=== PATIENT | male | born 1950 | race Hispanic/Latino ===

== ENCOUNTER 2018-10-11 09:09 | Emergency (ER) | payer MEDICARE, OTHER ==
[~2018-10-11] VITALS: Ht 167.6 cm; Wt 88.0 kg
[2018-10-11] MEDS ORDERED: ORPHENADRINE CITRATE 30 MG/ML VIAL IM ONE (12:00)
[2018-10-11] MEDS ORDERED: KETOROLAC TROMETHAMINE 60 MG/2 ML VIAL IM ONE (12:00)
[2018-10-11] MEDS ORDERED: DEXAMETHASONE SOD PHOS INJ 4 MG/ML VIAL IV ONE (12:00)
[2018-10-11] MEDS ORDERED: DEXAMETHASONE SOD PHOS 10 MG/1 ML VIAL ONE (12:32)
--- NOTE | 2018-10-11 14:25 | Diagnostic Imaging Report ---
Lumbar Spine Radiographs: 5 views including obliques HISTORY: Pain, status post heavy lifting COMPARISON: None available. DISCUSSION: The osseous structures are partially obscured by stool and bowel gas. Five non-rib bearing lumbar vertebral bodies. Right convex curvature. No displaced fracture or compression deformity is identified. Disc Spaces: Mild multilevel degenerative changes, most notably at L5-S1. Facets: Moderate hypertrophic degenerative changes at L4-5 and L5-S1. IMPRESSION: 1. No acute radiographic abnormality. 2. Multilevel degenerative changes, most notably at L5-S1. Signed by: Dr. Kojo Chaudhary D.O., M.M.M. on 10/11/2018 2:21 PM
[2018-10-11 15:31] VITALS: BP 138/83
== END 2018-10-11 15:40 | disposition home or self-care (01) ==
LOC: ER 09:09
DX: S39.92XA Unspecified injury of lower back, initial encounter (principal); X50.9XXA Other and unspecified overexertion or strenuous movements or postures, initial encounter; Y93.H2 Activity, gardening and landscaping; Y92.007 Garden or yard of unspecified non-institutional (private) residence as the place of occurrence of the external cause; M47.817 Spondylosis without myelopathy or radiculopathy, lumbosacral region; M54.42 Lumbago with sciatica, left side; I10 Essential (primary) hypertension; E78.5 Hyperlipidemia, unspecified; E11.9 Type 2 diabetes mellitus without complications; Z87.891 Personal history of nicotine dependence
CPT/HCPCS: 36415; 72110; 82948; 99283; J1100; J1885; J2360

== ENCOUNTER 2018-10-26 10:06 | Emergency (ER) | payer OTHER ==
[~2018-10-26] VITALS: Ht 167.6 cm; Wt 89.4 kg
--- OUTSIDE RECORDS SUMMARY | 2018-10-26 10:09 | XMS REPORT ---
Author Author [facility] Address Unknown Phone Unavailable Care Team Providers Care Cna Ltc Name Role Phone Mario PEARSON Unavailable Unavailable Problems This patient has no known problems. Allergies, Adverse Reactions, Alerts This patient has no known allergies or adverse reactions. Medications This patient has no known medications. Results Test Description Test Time Test Comments Text Results Atomic Results Result Comments SP LUMBAR, COMPLETE MIN 4VW 2018-10-11 14:20:00 [place] [id number] Patient Name: DI ROWE MR #: [id number] : 1950 Age/Sex: 68/M Req #: [id number] Adm Physician: Ordered by: DALI SALCEDO DRUG CLERK Report #: [id number] Location: ER Room/Bed: Procedure: [id number] DX/SP LUMBAR, COMPLETE MIN 4VW Exam Date: 10/11/18 Exam Time: 1350 REPORT STATUS: Signed Lumbar Spine Radiographs: 5 views including obliques HISTORY: Pain, status post heavy lifting COMPARISON: None available. DISCUSSION: The osseous structures are partially obscured by stool and bowel gas. Five non-rib bearing lumbar vertebral bodies. Right convex curvature. No displaced fracture or compression deformity is identified. Disc Spaces: Mild multilevel degenerative changes, most notably at L5-S1. Facets: Moderate hypertrophic degenerative changes at L4-5 and L5-S1. IMPRESSION: 1. No acute radiographic abnormality. 2. Multilevel degenerative changes, most notably at L5-S1. Signed by: Dr. Ericka Chaudhary D.O., M.M.M. on 10/11/2018 2:21 PM Dictated By: ERICKA CHAUDHARY DO 142 Transcribed By: YOAV on 10/11/181420 COPY TO: DALI SALCEDO NP
[2018-10-26] MEDS ORDERED: HYDROCODONE/APAP 10MG-325MG TAB PO ONE (11:00)
--- NOTE | 2018-10-26 11:49 | Diagnostic Imaging Report ---
CT CERVICAL SPINE WO HISTORY: Fall, neck pain COMPARISON: None. TECHNIQUE: CT of the cervical spine without contrast. Sagittal and coronal reformations were created. One or more of the following dose reduction techniques were used: Automated exposure control, adjustment of the mA and/or kV according to patient size, and/or utilization of iterative reconstruction technique. FINDINGS: Cervical lordosis is straightened. There is no scoliosis or subluxation. No fractures, compression deformity, or destructive osseous lesions are seen. The craniocervical junction is intact. No gross spinal canal masses are seen. The paravertebral and paraspinal soft tissues are unremarkable. Mild to moderate lower cervical spondylosis is most prominent at C6-C7. Mild atlantoaxial arthrosis is present as well. IMPRESSION: No acute osseous abnormalities. Mild to moderate lower cervical spondylosis, most prominent at C6-C7. Signed by: Dr. Cesar Granados M.D. on 10/26/2018 11:46 AM
--- NOTE | 2018-10-26 12:01 | Diagnostic Imaging Report ---
Examination: Single AP view of the chest. COMPARISON: None. INDICATION: Right upper posterior rib pain, concern for fracture DISCUSSION: Chest: The lungs are well-inflated. No focal airspace consolidation, pleural effusion, or pneumothorax. Tortuous thoracic aorta with otherwise normal cardiomediastinal contour and pulmonary vasculature. Ribs: No acute, displaced rib fracture. IMPRESSION: No acute, displaced right rib fracture. Clear lungs. Signed by: Dr. Enrico Shen M.D. on 10/26/2018 11:58 AM
[2018-10-26 12:47] VITALS: BP 143/85
== END 2018-10-26 12:45 | disposition home or self-care (01) ==
LOC: ER 10:06
DX: M54.2 Cervicalgia (principal); S10.83XA Contusion of other specified part of neck, initial encounter; S20.211A Contusion of right front wall of thorax, initial encounter; W01.0XXA Fall on same level from slipping, tripping and stumbling without subsequent striking against object, initial encounter; Y92.008 Other place in unspecified non-institutional (private) residence as the place of occurrence of the external cause; I10 Essential (primary) hypertension; E11.9 Type 2 diabetes mellitus without complications
CPT/HCPCS: 71101; 72125; 99283

== ENCOUNTER 2022-09-24 23:12 | Emergency (ER) | payer MEDICARE, OTHER ==
[~2022-09-24] VITALS: Ht 167.6 cm; Wt 89.4 kg
[2022-09-24] MEDS ORDERED: AUGMENTIN 500-1 EACH PO (23:56)
== END 2022-09-25 00:12 | disposition home or self-care (01) ==
LOC: ER 23:17
DX: H66.92 Otitis media, unspecified, left ear (principal); I10 Essential (primary) hypertension; E11.9 Type 2 diabetes mellitus without complications; E78.5 Hyperlipidemia, unspecified
CPT/HCPCS: 99282

== ENCOUNTER 2023-02-20 08:09 | Emergency (ER) | payer MEDICARE ==
[~2023-02-20] VITALS: Ht 167.6 cm; Wt 89.4 kg
[~2023-02-20 08:09] MED LIST: AUGMENTIN 500-1 EACH PO
[2023-02-20] MEDS ORDERED: HYDROCODONE/APAP 5MG-325MG TAB PO ONE (08:30)
[2023-02-20] MEDS ORDERED: NAPROXEN250 MG PO (10:22)
== END 2023-02-20 10:34 | disposition home or self-care (01) ==
LOC: ER 08:18
DX: M25.511 Pain in right shoulder (principal); W01.0XXA Fall on same level from slipping, tripping and stumbling without subsequent striking against object, initial encounter; Y93.01 Activity, walking, marching and hiking; Y92.89 Other specified places as the place of occurrence of the external cause; I10 Essential (primary) hypertension; E11.8 Type 2 diabetes mellitus with unspecified complications; E78.5 Hyperlipidemia, unspecified
CPT/HCPCS: 99283

== ENCOUNTER 2024-11-25 23:33 | Emergency (ER) | payer MEDICARE ==
[~2024-11-25] VITALS: Ht 167.6 cm; Wt 82.6 kg
[~2024-11-25 23:33] MED LIST changes: +NAPROXEN250 MG PO
[2024-11-25 23:37] VITALS: PULSE 83; RESP 16; TEMP 98.2; O2SAT 98
[2024-11-25] MEDS ORDERED: DEBROX15 ML RIGHT EAR (23:41)
== END 2024-11-25 23:45 | disposition home or self-care (01) ==
LOC: ER 23:43
DX: H61.22 Impacted cerumen, left ear (principal); I10 Essential (primary) hypertension; E11.9 Type 2 diabetes mellitus without complications; E78.5 Hyperlipidemia, unspecified
CPT/HCPCS: 99282